=== PATIENT | male | born 1990 | race Caucasian/White ===

== ENCOUNTER 2023-09-22 12:48 | Emergency (ER) | payer BC, MEDICAID ==
[~2023-09-22] VITALS: Ht 182.9 cm; Wt 81.6 kg
[2023-09-22 13:36] VITALS: BP 121/94; PULSE 110; RESP 20; TEMP 98; O2SAT 98
[2023-09-22] MEDS ORDERED: buprenorphine HCL 2 MG sublingual tab SL ONE (14:25)
[2023-09-22] MEDS ORDERED: BUPR1FIL5 SL ×3 (14:33→15:52)
== END 2023-09-22 14:53 | disposition home or self-care (01) ==
LOC: MED 12:48
DX: F11.23 Opioid dependence with withdrawal (principal); Z76.0 Encounter for issue of repeat prescription; Z79.899 Other long term (current) drug therapy
CPT/HCPCS: 99283

== ENCOUNTER 2024-01-23 08:16 | Emergency (ER) | payer MEDICAID ==
[~2024-01-23] VITALS: Ht 193 cm; Wt 105.7 kg
[~2024-01-23 08:16] MED LIST: BUPR1FIL5 SL
[2024-01-23 08:19] VITALS: BP 133/88; PULSE 96; RESP 18; TEMP 97.6; O2SAT 100
[2024-01-23 09:24] VITALS: BP 136/85; PULSE 105; RESP 12; TEMP 98.2; O2SAT 100
[2024-01-23] MEDS ORDERED: FAMO-92 PO (09:35)
== END 2024-01-23 09:24 | disposition home or self-care (01) ==
LOC: MED 08:16
DX: R07.89 Other chest pain (principal); R03.0 Elevated blood-pressure reading, without diagnosis of hypertension; K21.9 Gastro-esophageal reflux disease without esophagitis; F17.200 Nicotine dependence, unspecified, uncomplicated; Z79.899 Other long term (current) drug therapy
CPT/HCPCS: 71045; 93005; 99283

== ENCOUNTER 2024-06-16 22:02 | Emergency (ER) | payer MEDICAID ==
[~2024-06-16 22:02] MED LIST changes: +FAMO-92 PO
== END 2024-06-16 22:08 | disposition left against medical advice (07) ==
LOC: MED 22:02
DX: M79.606 Pain in leg, unspecified (principal); Z53.21 Procedure and treatment not carried out due to patient leaving prior to being seen by health care provider